=== PATIENT | female | born 2000 | race Caucasian/White ===

== ENCOUNTER 2021-05-20 12:31 | Inpatient (IN) | payer MEDICAID ==
[~2021-05-20] VITALS: Ht 154.9 cm; Wt 46.4 kg
[~2021-05-20 12:31] MED LIST: HYDR-826 PO; OLAN5TAB9 PO; SERT50TA28 PO
[2021-05-20] MEDS ORDERED: ONDANSETRON ODT 4 MG PO PRN (13:30)
[2021-05-20] MEDS ORDERED: DOCUSATE 100 MG CAPSULE PO PRN (13:30)
[2021-05-20] MEDS ORDERED: BISACODYL 10 MG SUPP PR PRN (13:30)
[2021-05-20] MEDS ORDERED: ACETAMINOPHEN 325 MG TABLET PO PRN (13:30)
[2021-05-20] MEDS ORDERED: POLYETHYLENE GLYCOL 17 GM PACKET PO PRN (13:30)
[2021-05-20 17:00] VITALS: BP 81/55
[2021-05-20] MEDS ORDERED: PLEASE ENTER HEIGHT AND WEIGHT MC SCH (17:00)
[2021-05-21 07:29] VITALS: BP 118/76
[2021-05-21] MEDS: BACITRACIN OINT 500U/GM, 15 GM TP SCH (20:17)
[2021-05-21] MEDS ORDERED: NEOSPORIN OINT, 15GM TP SCH (21:00)
[2021-05-21] MEDS: OLANZAPINE 5 MG TABLET PO SCH (21:00)
[2021-05-22 07:33] VITALS: BP 92/56
[2021-05-22] MEDS: BACITRACIN OINT 500U/GM, 15 GM TP SCH ×2 (09:00→20:40)
[2021-05-22] MEDS: SERTRALINE 50MG TABLET PO SCH (09:00)
[2021-05-22 19:23] VITALS: BP 101/71
[2021-05-22] MEDS: OLANZAPINE 5 MG TABLET PO SCH (20:39)
[2021-05-23] MEDS: SERTRALINE 50MG TABLET PO SCH (08:19)
[2021-05-23] MEDS: BACITRACIN OINT 500U/GM, 15 GM TP SCH ×2 (09:00→21:00)
[2021-05-23] MEDS: ARIPIPRAZOLE 5 MG TABLET PO SCH (17:34)
[2021-05-23 20:04] VITALS: BP 112/75
[2021-05-24] MEDS: SERTRALINE 50MG TABLET PO SCH (09:00)
[2021-05-24] MEDS: BACITRACIN OINT 500U/GM, 15 GM TP SCH ×2 (09:00→21:27)
[2021-05-24] MEDS ORDERED: ARIPIPRAZOLE 400 MG INJ NC IM ONE (16:00)
[2021-05-24] MEDS: ARIPIPRAZOLE 5 MG TABLET PO SCH (17:00)
[2021-05-24 19:49] VITALS: BP 111/79
[2021-05-25 07:21] VITALS: BP 96/58
[2021-05-25] MEDS: SERTRALINE 50MG TABLET PO SCH (09:00)
[2021-05-25] MEDS: BACITRACIN OINT 500U/GM, 15 GM TP SCH ×2 (09:00→21:00)
[2021-05-25] MEDS: ARIPIPRAZOLE 5 MG TABLET PO SCH (17:00)
[2021-05-25 19:22] VITALS: BP 98/65
[2021-05-26 07:29] VITALS: BP 107/69
[2021-05-26] MEDS: BACITRACIN OINT 500U/GM, 15 GM TP SCH (09:00)
[2021-05-26] MEDS: SERTRALINE 50MG TABLET PO SCH (09:00)
[2021-05-26] MEDS ORDERED: ARIP400S3 IM (13:31)
[2021-05-26] MEDS ORDERED: BACITRACIN TP (13:31)
[2021-05-26] MEDS ORDERED: SERT50TA28 PO (13:31)
[2021-05-26] MEDS ORDERED: [UNRECOGNIZED DRUG - OTHER] TP (13:31)
[2021-05-26] MEDS ORDERED: ARIP5TAB13 PO (13:31)
== END 2021-05-26 14:36 | disposition home or self-care (01) | DRG 885 ==
LOC: 3E 16:30
PROVIDERS: ADMIT Psychiatry & Neurology Psychosomatic Medicine; ATTEND Psychiatry & Neurology Psychosomatic Medicine
DX: F25.0 Schizoaffective disorder, bipolar type (principal); F15.20 Other stimulant dependence, uncomplicated; F17.200 Nicotine dependence, unspecified, uncomplicated; F41.1 Generalized anxiety disorder; F63.9 Impulse disorder, unspecified; G43.909 Migraine, unspecified, not intractable, without status migrainosus; Z79.899 Other long term (current) drug therapy; Z82.5 Family history of asthma and other chronic lower respiratory diseases; Z82.49 Family history of ischemic heart disease and other diseases of the circulatory system
CPT/HCPCS: 93005